=== PATIENT | male | born 1990 | race Caucasian/White ===

== ENCOUNTER 2025-09-11 10:45 | Emergency (ER) | payer OTHER ==
[~2025-09-11] VITALS: Ht 170.2 cm; Wt 175.4 kg
[2025-09-11 11:58] LABS: BASO # 0.1 10^3/uL (0.0-0.2); BASO % 0.6 % (0.0-1.0); EOS # 0.2 10^3/uL (0.0-0.5); EOS % 2.4 % (0.0-3.0); LYMPH # 2.4 10^3/uL (1.5-5.0); LYMPH % 28.6 % (24.0-44.0); MONO # 0.5 10^3/uL (0.0-0.8); MONO % 6.4 % (2.0-8.0); NEUTROPHILS # 5.1 10^3/uL (1.5-8.5); NEUTROPHILS % 61.4 % (36.0-66.0); PLATELET COUNT, AUTOMATED 273 10^3/uL (150-450)
[2025-09-11 12:20] LABS: INR 0.94
[2025-09-11 12:21] LABS: CK-MB VALUE MASS 1.0 NG/ML (<3.6)
[2025-09-11 12:26] LABS: CPK CREATINE PHOSPHOKINASE 98 U/L (46-171); MB/CK RELATIVE INDEX 1.02 (< OR =4)
[2025-09-11] MEDS ORDERED: ISOVUE-370 76% 100 ML VIAL As Ordered ONE (12:36)
[2025-09-11 13:38] LABS: CK-MB VALUE MASS < 1.0 NG/ML (<3.6)
[2025-09-11 13:45] LABS: CPK CREATINE PHOSPHOKINASE 76 U/L (46-171)
[2025-09-11] MEDS ORDERED: VENTAER INH (14:28)
[2025-09-11 14:35] VITALS: BP 141/65; O2SAT 95
[2025-09-11 14:39] VITALS: TEMP 97.4
== END 2025-09-11 14:58 | disposition home or self-care (01) ==
LOC: M ED 10:45
DX: R06.02 Shortness of breath (principal); M41.24 Other idiopathic scoliosis, thoracic region; E11.9 Type 2 diabetes mellitus without complications; E66.9 Obesity, unspecified; I45.10 Unspecified right bundle-branch block; I49.8 Other specified cardiac arrhythmias; K76.0 Fatty (change of) liver, not elsewhere classified; I10 Essential (primary) hypertension; Z79.52 Long term (current) use of systemic steroids
CPT/HCPCS: 36415; 71275; 80047; 82550; 82553; 83880; 84484; 85025; 85610; 93005; 93041; 93971; 94760; 99284; Q9967